=== PATIENT | female | born 1980 | race Caucasian/White ===

== ENCOUNTER → 2018-04-13 10:04 | Outpatient (CLI) | payer OTHER, SELFPAY ==
[2016-02-01 01:43] VITALS: BMI 20.7
[2018-04-13 13:11] LABS: ALB/GLOB Ratio 1.2 RATIO (0.9-2.4); AST(SGOT) 14 U/L (15-37); Alanine Aminotransfer ALT/SGPT 15 U/L (13-56); Alkaline Phosphatase 51 U/L (45-117); Anion Gap 10 (5-15); BUN 10 mg/dL (7-18); BUN/Creat Ratio 12.6 RATIO (10-20); Calcium,Total 8.4 mg/dL (8.5-10.1); Chloride 104 mmol/L (98-107); Cholesterol 140 mg/dL (200); Creatinine, Serum 0.79 mg/dL (0.55-1.02); EST Glomerular Filtration Rate 87 mL/min (>60); Est Glom Filt Rate - Afr Amer 105 mL/min (>60); Ferritin 23 ng/mL (8-252); Globulin 3.2 g/dL (2.2-4.2); Glucose 89 mg/dL (74-106); High Density Lipoprotein 60 mg/dL; Potassium 3.9 mmol/L (3.5-5.1); Protein, Total 7.2 g/dL (6.4-8.2); Sodium Level 140 mmol/L (136-145); Thyroid Stim Hormone (TSH) 2.44 uIU/mL (0.358-3.74)
--- OUTSIDE RECORDS SUMMARY | 2018-06-17 17:37 | XMS RPT_ITS ---
:1980 Author Organization [facility] Care Team Providers Name Role Phone Jorge Salgado Attending Unavailable Jorge Salgado Primary Care Unavailable PROBLEMS PROBLEMS DATE TYPE CONDITION / CODE ATTENDING STATUS SOURCE 04/16/2018 Unknown Z00.00 - Jorge Salgado Active [place] Encounter for [facility] medical Repository examination without abnormal findings / Z00.00(ICD-10) 04/16/2018 Unknown R53.83 - Other SalgadoJorge Active [place] fatigue / Community R53.83(ICD-10) Hospital Repository 04/16/2018 Unknown E61.1 - Iron Salgado, Jorge Active [place] deficiency / Community E61.1(ICD-10) Hospital Repository PROCEDURES PROCEDURES No Procedure Records FoundRESULTS RESULTS COMPREHENSIVE METABOLIC Collected: 04/13/2018 Status: F Source: [place] PROFIL 10:07 AM [facility] REPOSITORY TYPE CODE TESTS RESULT OUT OF RANGE REFERENCE UNITS LAB L501.0100 74-106 mg/dL Normal GLU 89 Result Comment: Please note revised GLUCOSE reference range effective 2017. LAB L501.1000 7-18 mg/dL Normal BUN 10 LAB L501.1100 0.55-1.02 mg/dL Normal CREAT,SERUM 0.79 Result Comment: The validity of the calculated GFR AND GFRAA in patients over 70 years has not been determined. Clinical correlation is essential. LAB L501.1110 >60 mL/min Normal EST GFR 87 Result Comment: Non- GFR Calc LAB L501.1115 >60 mL/min Normal EST GFR - AA 105 Result Comment: GFR Calc LAB L501.1300 10-20 RATIO Normal BUN/CRE 12.6 LAB L501.1500 6.4-8.2 g/dL T Normal PROT 7.2 LAB L501.1800 3.2-5.0 g/dL Normal ALB 4.0 LAB L501.1950 2.2-4.2 g/dL Normal GLOB 3.2 LAB L501.2000 0.9-2.4 RATIO Normal A/G 1.2 LAB L501.2200 8.5-10.1 mg/dL Low CA 8.4 LAB L501.4100 15-37 U/L Low AST 14 LAB L501.4305 45-117 U/L Normal ALK P 51 LAB L501.4405 13-56 U/L Normal ALT 15 LAB L501.4600 0.20-1.00 mg/dL T Normal BILI 0.90 LAB L501.5300 136-145 mmol/L NA Normal 140 LAB L501.5600 3.5-5.1 mmol/L K Normal 3.9 LAB L501.5900 98-107 mmol/L CL Normal 104 LAB L501.6100 21.0-32.0 mmol/L Normal CO2 26.0 LAB L501.6200 5-15 Normal GAP 10 Performed By: #### L500.4050, L501.4900, L501.5200, L501.6400, L501.9520, L503.6550 #### [facility] [address], [place], [address] CHOLESTEROL Collected: 04/13/2018 Status: F Source: [place] 10:07 [facility] [place] TYPE CODE TESTS RESULT OUT OF RANGE REFERENCE UNITS LAB L501.4900 200 mg/dL Normal CHOL 140 Result Comment: <200 mg/dL Desirable 200-240 mg/dL Borderline >240 mg/dL High Risk Performed By: #### L500.4050, L501.4900, L501.5200, L501.6400, L501.9520, L503.6550 #### [facility] [address], [place], [address] MAGNESIUM Collected: 04/13/2018 Status: F Source: [place] 10:07 [facility] [place] CODE TESTS RESULT OUT OF RANGE REFERENCE UNITS LAB L501.5200 1.6-2.6 mg/dL Normal MG 2.0 Performed By: #### L500.4050, L501.4900, L501.5200, L501.6400, L501.9520, L503.6550 #### [facility] [address] [place], [place], [address] HIGH DENSITY Collected: 04/13/2018 Status: F Source: [place]AN LIPOPROTEIN 10:07 AM [facility] [place] REPOSITORY TYPE CODE TESTS RESULT OUT OF RANGE REFERENCE UNITS LAB L501.6400 mg/dL Normal HDL 60 Result Comment: The drugs N-Acetylcysteine and Metamizole may falsely depress this assay. Reference Range HDL <40 mg/dL Low HDL Cholesterol HDL >or= 60 mg/dL High HDL Cholesterol Performed By: #### L500.4050, L501.4900, L501.5200, L501.6400, L501.9520, L503.6550 #### [facility] [address] [place], [place], [address] THYROID STIM HORMONE Collected: 04/13/2018 Status: F Source: JAN (TSH) 10:07 AM [facility] [place] REPOSITORY TYPE CODE TESTS RESULT OUT OF RANGE REFERENCE UNITS LAB L501.9520 0.358-3.74 uIU/mL Normal TSH 2.44 Performed By: #### L500.4050, L501.4900, L501.5200, L501.6400, L501.9520, L503.6550 #### [facility] [address] [place], [place], [address] FERRITIN Collected: 04/13/2018 Status: F Source: [place] 10:07 AM [facility] [place] REPOSITORY TYPE CODE TESTS RESULT OUT OF RANGE REFERENCE UNITS LAB L503.6550 8-252 ng/mL Normal FERRITIN 23 Performed By: #### L500.4050, L501.4900, L501.5200, L501.6400, L501.9520, L503.6550 #### [facility] [address] [place], [place], [id number] ALLERGIES ALLERGIES DATE TYPE / CODE NAME / CODE REACTION SEVERITY SOURCE 02/01/2016 Drug Fish Containing Anaphylaxis Unknown [place] Allergy/416 Products/[id number] Community [id number]([place] [address](RXNORM) [facility] ED CT) Repository 02/01/2016 Drug egg/[id number](R Itching Unknown [place] Allergy/416 XNORM) [facility] [id number]([facility] ED CT) Repository ENCOUNTERS ENCOUNTERS ADMIT/DISCHARGE ACCOUNT ADMITTING ENCOUNTER LOCATION SOURCE NUMBER CLASS 04/13/2018 [id number] [place] 5 [facility] ing:MFPLAB Repository PAYERS PAYERS ENCOUNTER GUARANTOR PAYER SUBSCRIBER SOURCE 04/13/2018 Jen Primary Jen Jan [id number] Insurance:CIGNAPolaaliyahy FilimonovaDOB: [facility]: [id number] [place]ository [place] [address]q: Date:[id number], [place] () [address]RH: 04/13/2018 Secondary NOT GIVENUNK [place] Insurance:SELF PAY [facility] Number: Effective Repository Date:2018-04-13
== END ==
PROVIDERS: Family Provider Family Medicine; PCP Family Medicine; Visit Provider Family Medicine
DX: Z00.00 Encounter for general adult medical examination without abnormal findings (principal); E61.1 Iron deficiency; R53.83 Other fatigue
CPT/HCPCS: 36415; 80053; 82465; 82728; 83718; 83735; 84443

== ENCOUNTER → 2018-05-30 13:53 | Outpatient (CLI) | payer OTHER, SELFPAY ==
--- NOTE | 2018-05-30 13:59 | BI_ITS ---
MAMMOGRAPHY - BILATERAL DIAGNOSTIC REASON FOR EXAM: Female, 38 years old. Right breast lump. PERTINENT HISTORY: Non-contributory. TECHNIQUE: Digital bilateral breast mike (3D mammographic acquisition) in the CC and MLO projections. 2-D mediolateral oblique (MLO) and craniocaudad (CC) views of both breasts were obtained. CAD: Full Field Digital Mammography with Computer Added Detection was performed. COMPARISON: None. Baseline examination. FINDINGS: Breast Composition: The breasts are extremely dense, which lowers the sensitivity of mammography. There are no dominant masses or suspicious calcifications. No other significant abnormalities are identified. BI/DIAG MAMM W/CAD, BILAT IMPRESSION: Negative diagnostic mammogram. With the patient's history of a palpable abnormality in the upper outer quadrant of the right breast, correlation with ultrasound is recommended. ASSESSMENT CATEGORY: BIRADS Category 0: Incomplete. Need additional imaging evaluation. A letter regarding these results will be sent to the patient by the facility within 30 days. Approximately 10% of breast cancers are not detected by mammography. A normal mammogram should not delay biopsy of a clinically suspicious abnormality. Electronically Signed: Tim Cabrera, at 15:12 EST , Service support ,
--- NOTE | 2018-05-30 13:59 | US_ITS ---
STUDY: ULTRASOUND BREAST - RIGHT REASON FOR EXAM: Female, 38 years old. Palpable lump in the right breast. TECHNIQUE: Axial and longitudinal images of the RIGHT breast were performed with a high resolution ultrasound transducer. COMPARISON: Comparison is made with prior mammogram done earlier today. FINDINGS: RIGHT Breast: Large amount of fibroglandular tissue. No solid or cystic mass lesion is seen. Mildly dilated retroareolar ducts. US/Breast Limited Unilateral IMPRESSION: No solid or cystic mass lesion is seen. Dilated subareolar ducts. ASSESSMENT CATEGORY: BIRADS Category 2: Benign. A letter regarding these results will be sent to the patient by the facility within 30 days. Electronically Signed: Tim Cabrera, at 9:18 EST , Service support ,
== END ==
PROVIDERS: Family Provider Family Medicine; PCP Family Medicine; Referring Provider Nurse Practitioner Adult Health; Visit Provider Nurse Practitioner Adult Health
DX: N63.10 Unspecified lump in the right breast, unspecified quadrant (principal)
CPT/HCPCS: 76642; 77062; 77066; G0279

== ENCOUNTER → 2018-05-31 18:02 | Outpatient (CLI) | payer OTHER, SELFPAY ==
[2018-06-05 13:35] LABS: HPV Reflexed? NOT INDICATED
== END ==
PROVIDERS: Family Provider Family Medicine; PCP Family Medicine; Referring Provider Nurse Practitioner Adult Health; Visit Provider Nurse Practitioner Adult Health
DX: Z12.4 Encounter for screening for malignant neoplasm of cervix (principal)
CPT/HCPCS: 88175; G0145

== ENCOUNTER → 2018-10-10 | Outpatient (CLI) | payer OTHER, SELFPAY | END | disposition home or self-care (01) | PROVIDERS: Family Provider Family Medicine; PCP Family Medicine; Referring Provider Nurse Practitioner Family; Visit Provider Nurse Practitioner Family | DX: N89.8 Other specified noninflammatory disorders of vagina (principal) | CPT/HCPCS: 87086; 87088 ==

== ENCOUNTER 2019-06-08 08:20 | Inpatient (IN) | payer OTHER, SELFPAY ==
[2016-02-01 01:43] VITALS: BMI 20.7
[2019-06-08] VITALS (16 sets, daily range): BP systolic 92–124; BP diastolic 56–75; PULSE 62–92; RESP 12–16; TEMP 36.7–37.4; O2SAT 98; BMI 24.4
--- NOTE | 2019-06-08 08:32 | PCM.HP.OB ---
History Date of Admission: 06/08/19 Final NIC: 06/10/19 Gestational age: 39 Weeks and 5 Days History of this : This is a 39 year-old, G 2P1 @ 39.5 wks, in active labor. pt was here for r/o labor earlier w/o cervical change but now returned with SROM and 8cm dilated. Allergies Fish Containing Products Allergy (Severe, Verified 06/08/19 04:01) Anaphylaxis egg Allergy (Mild, Verified 06/08/19 04:01) Itching raw egg white Smoking Status: Never smoker Alcohol: None Number of Fetus(es): 1 History Past Pregnancies: Past Pregnancies Delivery Date Name GA/ Weeks Outcome Route Wt Sex Labor Length Anesthesia Delivery Location Provider FOB Expected Infant Delivery Method: Spontaneous Vaginal Physical Exam Vitals: Vital Signs Temp Pulse BP Pulse Ox 98.5 F 85 108/73 98 06/08/19 04:03 06/08/19 04:03 06/08/19 04:03 06/08/19 04:03 General: Alert, Oriented x3 Abdomen: Soft, Non Tender, Non-Distended Neurological: Cranial nerves II-XII grossly intact Estimated gestational size: Appropriate for gestational size Presentation: Cephalic Cervix Dilation (cm): 8 Assessment/Plan This is a 39 year-old, @ 39.5 wks in active labor with SROM 1) admit to L&D 2) monitor fhr/toco 3) Anticipate 4) Nitrous if desired
[2019-06-08] MEDS: Lactated Ringers 1,000 ML 50 ML IV (08:40)
[2019-06-08 09:13] LABS: Absolute Lymphocyte Count 2.17 X10^3/uL (0.83-4.51); Absolute Neutrophil Count 9.3 X10^3/uL (2.0-7.7); Basophil# 0.05 X10^3/uL; Basophil% 0.4 % (0-1); Eosinophil# 0.05 X10^3/uL; Eosinophils% 0.4 % (0-5); Hematocrit 34.8 % (37-47); Hemoglobin 11.4 g/dL (12.0-15.0); Lymphocyte # 2.17 X10^3/ul (4.0); Lymphocyte % 17.4 % (19-41); Mean Corp Hgb Conc 32.8 g/dL (32-36); Mean Corpuscular Hgb 31.2 pg (27.0-32.0); Mean Corpuscular Volume 95.3 fL (81-99); Mean Platelet Vol. 12.6 fl (6.2-12.0); Monocyte# 0.83 X10^3/uL; Monocyte% 6.6 % (0-10); NRBC Flagged by Analyzer 0 % (0-5); Neutrophil # 9.34 X10^3/uL (2.7-7.7); Neutrophil % 74.7 % (47-70); Platelet Count 179 K/mm3 (150-450); RBC Distribution Width CV 12.6 % (11.6-14.6); RBC Distribution Width SD 43.9 fl (35.1-43.9); Red Blood Count 3.65 M/mm3 (4.2-5.4); White Blood Count 12.5 K/mm3 (4.4-11.0)
--- NOTE | 2019-06-08 09:39 | PCM.PN.BLA ---
Progress Note pt complete and pushing- different position changes to help patient push more effectively. Deep variables with pushing, good return to baseline with moderate variability. STROKE Vital Signs/Narrative: Vital Signs Pulse BP 06/08/19 08:32 67 113/66
[2019-06-08] MEDS: Oxytocin 30 units/NS 500 ml 30 UNITS/500 ML IV.SOLN 334 UNITS IV (10:45)
--- NOTE | 2019-06-08 10:52 | OP.PCM_ITS ---
Vaginal Delivery Maternal Presentation: Active Labor, Spontaneous Rupture of Membranes Amniotic Membrane Rupture Type: Spontaneous at home Rupture of Membrane time: 0800 Amniotic Fluid Description: Clear Final NIC: 06/10/19 Gestational age: 39 Weeks and 5 Days Date of Procedure: 06/08/19 Pre-Operative Diagnosis: term gestation, active labor, srom Post-Operative Diagnosis: same, live male infant Surgery/ Procedure Performed: Spontaneous Vaginal Delivery, Vacuum Assisted Vaginal Delivery - one pull of vacuum with pop off prior to delivery of head Type of Anesthesia: None Description of Procedure: Mother complete and pushing with poor maternal pushing efforts. Maternal exhaustion appreciated mother was counseled on vacuum assisted delivery she was counseled on the risks and benefits and alternatives. She would like vacuum- assisted delivery-bladder drain was attempted previously w/o urine- pt has been voiding while pushing. vacuum was placed on the flexion point SHANTI position. Vacuum pressure at 550 mmHg vacuum was placed on the flexion point in 1 pull with 1 pop-off. At this time with good maternal pushing efforts the 's head was then without vacuum assistance. Head was then delivered SHANTI but then restituted to direct OP position and infant was delivered without difficulty. There was one loose nuchal that was reduced prior to delivery. The had immediate cord clamping and handed to the waiting nursery team. The infant was then vigorous when placed in the Iso[place]. placenta was delivered intact. First-degree perineal laceration appreciated. Lidocaine was injected and 3-0 repeat suture was used to reapproximate. Presentation: SHANTI Placental Delivery Description: Spontaneous Placenta Disposition: [facility] Cord Vessel Description: 3 Vessels Nuchal Cord Compression: With compression Cord Entanglement: Around neck x 1, loose Estimated Blood Loss: 200 A gender: Male (1 minute): 8 (5 minute): 9 Episiotomy Description: None Laceration: Perineal Extension/lac, 1st degree Medications given after delivery: IV Pitocin Complications: None
[2019-06-08] MEDS: Ibuprofen 600 MG Tablet PO ×2 (13:54→23:59)
[2019-06-08] MEDS: Senna/Docusate Sodium 1 Tablet PO (18:36)
[2019-06-08] MEDS: Acetaminophen 500 MG Tablet 1000 MG PO (18:36)
--- NOTE | 2019-06-08 19:20 | NURSING ---
1845 K pad for abdominal cramping.
[2019-06-09] VITALS: BP 106/64; PULSE 74; RESP 16; TEMP 36.3
[2019-06-09 03:58] VITALS: BP 113/66; PULSE 75; RESP 14; TEMP 36.9
[2019-06-09 07:30] VITALS: BP 99/56; PULSE 67; RESP 16; TEMP 36.4
--- NOTE | 2019-06-09 08:34 | PN.OBGYN_ITS ---
Subjective: pt seen at bedside, doing well. pt reports good pain control. Lochia mild. Breast feeding. Voiding w/o difficulty. +BMs - Physical Exam Vitals/I&O's: Vital Signs Temp Pulse Resp BP Pulse Ox 98.4 F 75 14 113/66 98 06/09/19 03:58 06/09/19 03:58 06/09/19 03:58 06/09/19 03:58 06/08/19 04:03 Oxygen Delivery Method Room Air Weight: 72.8 kg Body Mass Index (BMI) 24.4 Intake and Output for Last 24 Hours 06/07/19 06/08/19 06/09/19 23:59 23:59 23:59 Intake Total 601.67 / 601.67 Balance 601.67 / 601.67 General: Alert, Oriented x3 Abdomen: Soft, Non Tender, Non-Distended, - - fundus firm Extremities: No Calf Tenderness Comment: perieneum normal Laboratory Results 06/08/19 08:40: WBC 12.5 H, RBC 3.65 L, Hgb 11.4 L, Hct 34.8 L, MCV 95.3, MCH 31.2, MCHC 32.8, RDW Std Deviation 43.9, RDW Coeff of Sarah 12.6, Plt Count 179, MPV 12.6 H, Immature Gran % (Auto) 0.500, Neut % (Auto) 74.7 H, Lymph % (Auto) 17.4 L, Hudspeth % (Auto) 6.6, Eos % (Auto) 0.4, Baso % (Auto) 0.4, Absolute Neuts (auto) 9.3 H, Absolute Lymphs (auto) 2.17, Nucleated RBC % 0 06/08/19 08:40: Blood Type B POSITIVE, Antibody Screen NEGATIVE Current Medications Acetaminophen (Tylenol) 1,000 mg PO Q8H PRN PRN PRN Reason: Pain Score 1-3/10 Last Admin: 06/08/19 18:36 Dose: 1,000 mg Documented by: Bisacodyl (Dulcolax) 10 mg RECTAL UD PRN PRN Reason: If no BM Dibucaine (Dibucaine) 1 applic TOPICAL TID PRN PRN; Protocol PRN Reason: Discomfort Hydrocortisone (Hytone) 1 applic TOPICAL TID PRN PRN; Protocol PRN Reason: Discomfort Ibuprofen (Motrin) 600 mg PO Q6H PRN PRN PRN Reason: Pain Score 1-3/10 Last Admin: 06/08/19 23:59 Dose: 600 mg Documented by: Methylergonovine Maleate (Methergine) 0.2 mg IM X1 PRN PRN Reason: Excess bleeding/uterine atony Ondansetron HCl (Zofran) 4 mg IV Q4H PRN PRN PRN Reason: Nausea Oxycodone HCl (Oxyir) 5 - 10 mg PO Q4H PRN PRN PRN Reason: Pain Score 4-10/10 Senna/Docusate Sodium (Senokot-S, Sheila-Colace) 1 - 2 tablet PO DAILY PRN PRN PRN Reason: Constipation Last Admin: 06/08/19 18:36 Dose: 2 tablet Documented by: Simethicone (Mylicon) 80 mg PO PCHS PRN PRN Reason: Indigestion/Stomach pain Sodium Chloride () 5 - 15 ml IV UD PRN PRN Reason: SALINE FLUSH Medical Necessity - Tobacco Use Smoking Status: Former smoker Assessment/Plan PPD#1, doing well routine care pain mgmt
[2019-06-09] MEDS: Ibuprofen 600 MG Tablet PO (09:47)
[2019-06-09 13:30] VITALS: BP 100/67; PULSE 78; RESP 16; TEMP 36.4
[2019-06-09] MEDS: Senna/Docusate Sodium 1 Tablet PO (20:45)
[2019-06-09 21:40] VITALS: BP 101/73; PULSE 85; RESP 16; TEMP 37.1
[2019-06-10 01:50] VITALS: BP 105/67; PULSE 70; RESP 16; TEMP 36.2
[2019-06-10] MEDS: Hydrocortisone 2.5% Crm 1 APPLIC TOPICAL (08:42)
[2019-06-10 08:45] VITALS: BP 112/71; PULSE 74; RESP 16; TEMP 36.6
--- NOTE | 2019-06-10 09:20 | DCINST_ITS ---
Discharge Diet: No Restrictions Discharge Activity: Return to Normal Activity Call your doctor if your incision/area has: Sudden Increased Bleeding, Increased Pain/ Swelling, Foul Smelling Discharge Call your doctor if you observe: Fever of 101 or Higher, Numbness or Tingling, Inability to urinate, Inability to have a bowel movement, Using more than one pad per hour, Shortness of breath, Dizziness, Chest pain Additional Instructions: If you experience any of the following, contact your healthcare provider. * Bleeding that soaks a pad every hour for 2 hours * Fever 100.4 or higher * Unrelieved incision or abdominal pain * Swelling, redness, discharge or bleeding from your incision or episiotomy site * Your incision begins to separate * Problems urinating (including inability to urinate or burning while urinating). * Visual changes * Severe headache * Flu-like symptoms * Pain or redness in one of both of your breasts * Pain, warmth, tenderness or swelling in your legs, especially the calf area * Frequent nausea and vomiting * Symptoms of depression or anxiety If you experience any of the following, call 911 or go to the nearest Emergency Room. * Chest pain * Problems breathing * Seizure activity * Partial or complete paralysis of a body part, slurred speech, weakness or drooping of the face, or a sudden inability to walk or hold your balance Allergies/Adverse Reactions: Allergies Fish Containing Products Allergy (Severe, Verified 06/08/19 04:01) Anaphylaxis egg Allergy (Mild, Verified 06/08/19 04:01) Itching raw egg white Primary Care Physician: Jorge Salgado MD [Primary Care Provider] - Test Results: Test results from this visit will be discussed in further detail at your follow- up appointment, if applicable.
--- NOTE | 2019-06-10 09:20 | PCM.DCVAG ---
Discharge Diet: No Restrictions Discharge Activity: Return to Normal Activity Call your doctor if your incision/area has: Sudden Increased Bleeding, Increased Pain/ Swelling, Foul Smelling Discharge Call your doctor if you observe: Fever of 101 or Higher, Numbness or Tingling, Inability to urinate, Inability to have a bowel movement, Using more than one pad per hour, Shortness of breath, Dizziness, Chest pain Additional Instructions: If you experience any of the following, contact your healthcare provider. Bleeding that soaks a pad every hour for 2 hours Fever 100.4 or higher Unrelieved incision or abdominal pain Swelling, redness, discharge or bleeding from your incision or episiotomy site Your incision begins to separate Problems urinating (including inability to urinate or burning while urinating). Visual changes Severe headache Flu-like symptoms Pain or redness in one of both of your breasts Pain, warmth, tenderness or swelling in your legs, especially the calf area Frequent nausea and vomiting Symptoms of depression or anxiety If you experience any of the following, call 911 or go to the nearest Emergency Room. Chest pain Problems breathing Seizure activity Partial or complete paralysis of a body part, slurred speech, weakness or drooping of the face, or a sudden inability to walk or hold your balance Allergies/Adverse Reactions: Allergies Fish Containing Products Allergy (Severe, Verified 06/08/19 04:01) Anaphylaxis egg Allergy (Mild, Verified 06/08/19 04:01) Itching raw egg white Primary Care Physician: Jorge Salgado MD [Primary Care Provider] - Test Results: Test results from this visit will be discussed in further detail at your follow-up appointment, if applicable.
--- NOTE | 2019-06-10 09:23 | PCM.PN.BLA ---
Progress Note Patient and doing well. Patient without issues. Requesting to be discharged home today. D/C home without restrictions RTO-2 weeks / virtual visit PRN if need STROKE Vital Signs/Narrative: Vital Signs Temp Pulse Resp BP 06/10/19 08:45 97.8 F 74 16 112/71
[2019-06-10] MEDS: Senna/Docusate Sodium 1 Tablet PO (10:49)
[2019-06-10 12:10] VITALS: BP 103/69; PULSE 79; RESP 16; TEMP 36.9
[2019-06-10 13:40] VITALS: BP 103/69; PULSE 79; RESP 16; TEMP 36.9
== END 2019-06-10 13:50 | disposition home or self-care (01) | DRG 807 ==
LOC: WP 08:32
PROVIDERS: Admitting Provider Obstetrics & Gynecology; PCP Family Medicine; Referring Provider Obstetrics & Gynecology; Visit Provider Obstetrics & Gynecology
DX: O69.1XX0 Labor and delivery complicated by cord around neck, with compression, not applicable or unspecified (principal); Z37.0 Single live birth; O70.0 First degree perineal laceration during delivery; Z3A.39 39 weeks gestation of pregnancy
CPT/HCPCS: 59025; 59050; 85025; 86850; 86900; 86901; 99218; J7120; G0378